=== PATIENT | female | born 1985 | race Caucasian/White ===

== ENCOUNTER 2016-09-18 21:50 | Emergency (ER) | payer OTHER ==
[~2016-09-18] VITALS: Ht 177.8 cm; Wt 102.0 kg
[~2016-09-18 21:50] MED LIST: EFFSR75 PO; ETONMIS VAGRING; SYN75 PO; TRIA3AER NAE
[2016-09-18 21:59] VITALS: Ht 177.8 cm; Wt 102.0 kg
[2016-09-18] MEDS ORDERED: IBUPROFEN 600 MG TAB PO STA (22:18)
[2016-09-18] MEDS ORDERED: OSELTAMIVIR PHOSPHATE 75 MG CAP PO STA (22:18)
--- NOTE | 2016-09-18 22:20 | EMERGENCY ROOM VISIT NOTE ---
History Report prepared by Lizet: Damon Cooley Under the Supervision of: Dr. Quinton Howe M.D. First contact with patient: 22:03 Chief Complaint: FLU LIKE SX Stated Complaint: FEVER,BODY ACHES,JOINT PAIN,SORE THROAT History of Present Illness The patient is a 30 year old female who presents to the Emergency Room with complaints of flu-like symptoms that began 4 hours ago. The patient felt completely fine this morning. She took a nap, and when she woke up she started having a sore throat. She then began to have a fever, body aches, joint pain, post nasal drip, and shallowed breathing. She denies any cough, vomiting, diarrhea, nausea, rash, chest pain, abdominal pain, and headache. She did not take anything for her pain. She did have a flu shot this year. There is no chance that she is . Denies neck pain or stiffness. Source of History: patient, spouse/significant other Onset: 4 hours ago Position: other (global) Symptom Intensity: moderate Quality: ache, other (flu-like symptoms) Timing: constant Associated Symptoms: + SOB (shallowed breathing), + fevers, + sorethroat, No abdominal pain, No chest pain, No cough, No headache, No nausea, No rash, No vomiting Note: She has body aches, joint pain, and rhinorrhea. Review of Systems See HPI for pertinent positives & negatives. A total of 10 systems reviewed and were otherwise negative. Past Medical & Surgical Medical Problems: (1) ADHD (attention deficit hyperactivity disorder) (2) DDD (degenerative disc disease) (3) Rosendo's disease (4) Hypothyroid (5) PCOS (polycystic ovarian syndrome) Old medical records were reviewed. Nurse's notes were reviewed and I agree with. Family History Depression FH: heart disease FHx: cancer Hypertension Kidney disease Social History Smoking Status: Never Smoker Smokeless Tobacco Use: No Alcohol Use: occasionally Drug Use: none Marital Status: Housing Status: lives with significant other Occupation Status: employed Current/Historical Medications Scheduled Amphetamine-Dextroamphetamine 20MG (Adderall Xr 20MG), 20 MG PO DAILY Gptanne-Uitpjyoselubb-Qpulebni (Excedrin Migraine), 1 TAB PO UD Clomiphene Citrate (Clomiphene Citrate), 150 MG PO DAILY Levothyroxine Sodium (Levothyroxine Sodium), 1 TAB PO DAILY Multivit/Min/Iron/Fol Ac/Pren ( Vitamin), 1 TAB PO DAILY Oseltamivir (Tamiflu), 75 MG PO BID Scheduled PRN Ibuprofen Tab (Advil), 400 MG PO UD PRN for Headache or Pain Triamcinolone Acetonide (Nasal (Nasacort Allergy 24Hr), 2 SPRAYS LIZ DAILY PRN for congestion Allergies Coded Allergies: Banana (Verified Allergy, Unknown, ANAPHYLAXIS, 09/18/16) Cantaloupe (Verified Allergy, Unknown, itching of mouth, 09/18/16) Mold (Blue) Cheese (Verified Allergy, Unknown, itching of mouth, 09/18/16) Physical Exam Vital Signs Date Time Temp Pulse Resp B/P Pulse Ox O2 Delivery O2 Flow Rate FiO2 09/18/16 21:59 37.7 112 16 143/82 97 Room Air Physical Exam General: Mildly ill appearing young female, non-toxic, young female. Well developed well nourished in no acute distress, breathing comfortably on room air. Normal speech HEENT: Normal cephalic atraumatic. Pupils are equal round and reactive to light. Extraocular movements are intact. Oropharynx is pink with moist mucous membranes. No swelling of the mouth lips or tongue. Neck: Supple with a midline trachea. No meningeal signs or stiffness, no JVD or bruits. No Stridor. Negative Kernig and Brudzinski signs. Chest: Clear to auscultation bilaterally. No wheezes or rhonchi. No increased work of breathing. Heart: regular rate and rhythm. Abdomen: Soft nontender, nondistended without rebound guarding or rigidity. Extremities: No cyanosis clubbing or edema. No calf tenderness or assymetry Spine/Back. Non tender to palpation. No CVA tenderness Skin: Good turgor without rashes. Neurologic exam: Cranial nerves two through 12 are intact. Motor and sensation are intact and symmetrical throughout. Medical Decision & Procedures Medications Administered Medications (Trade) Dose Ordered Sig/Ike Route Start Time Stop Time Status Last Admin Dose Admin Ibuprofen (Motrin Tab) 600 mg NOW STAT PO 09/18/16 22:18 09/18/16 22:20 DC 09/18/16 22:35 600 MG Oseltamivir Phosphate (Tamiflu Cap) 75 mg NOW STAT PO 09/18/16 22:18 09/18/16 22:20 DC 09/18/16 22:34 75 MG ED Course 2202: Past medical records reviewed. The patient was evaluated in room C9, and a complete history and physical examination were performed. 2217: Ordered Tamiflu Cap 75 mg PO, Motrin Tab 600 mg PO 5: Upon reevaluation, the patient is resting. I discussed the results and treatment plan with her. She verbalized agreement of the treatment plan. The patient was discharged home. Medical Decision Differentials include, but are not limited to; influenza, strep throat, sepsis, and dehydration. This patient comes in as described above. She was placed in room C9. She has influenza-like illness and it started 4 hours ago. She has body aches, sore throat, fever and generalized malaise. She has no meningeal signs and has nothing to suggest toxicity meningitis or sepsis. Rapid strep was negative. Her throat does not appear to be significantly swollen. Given her classic symptoms, I will start on Tamiflu I talked to her at length. At this point, the rapid flu is not very accurate and even if it was negative based on my clinical suspicion I would start her on Tamiflu. She agrees as does her . She should have good supportive care, Rest and drink plenty fluids, use Tylenol and/or ibuprofen and do not exceed the tkig-dnm-hciwiao dosages. Return if: Worsening of symptoms, not tolerating fluids, fever or chills, any new problems or concerns. Follow-up with her doctor in the next couple days for recheck. Impression Primary Impression: Influenza Additional Impression: Pharyngitis Scribe Attestation The scribe's documentation has been prepared under my direction and personally reviewed by me in its entirety. I confirm that the note above accurately reflects all work, treatment, procedures, and medical decision making performed by me. Departure Information Dispostion Home / Self-Care Prescriptions Oseltamivir (Tamiflu) 75 Mg Cap 75 MG PO BID, #10 CAP Prov: Quinton Howe M.D. 09/18/16 Referrals No Doctor, Assigned (PCP) Forms HOME CARE DOCUMENTATION FORM, IMPORTANT VISIT INFORMATION Patient Instructions My [facility] Additional Instructions Rest. Drink plenty of fluids. Use Tamiflu 75 mg twice a day for 5 days. Use ibuprofen 400 mg every 6 hours, take with food. May also use Tylenol/acetaminophen -a maximum of 650 mg every 6 hours. Do not take with any other medications that contain Tylenol/acetaminophen. Return if: Worsening of symptoms, shortness of breath, not tolerating fluids, any new problems or concerns. Follow-up with your doctor in 2 days if not better or return to ER any point if symptoms worsen Problem Qualifiers
[2016-09-18] MEDS ORDERED: OSEL75CA12 PO (22:22)
[2016-09-18] MEDS ORDERED: LEVO88TA3 PO (22:31)
[2016-09-18] MEDS ORDERED: AMPH20CA3 PO (22:31)
[2016-09-18] MEDS ORDERED: ASPI-390 PO (22:31)
[2016-09-18] MEDS ORDERED: CLOM50TA6 PO (22:31)
[2016-09-18] MEDS ORDERED: IBUP-103 PO (22:31)
[2016-09-18] MEDS ORDERED: PRENTAB26 PO (22:31)
[2016-09-18] MEDS ORDERED: TRIA1SPR4 NAE (22:31)
[2016-09-18 22:38] VITALS: BP 157/98; PULSE 104; TEMP 38.3; O2SAT 100
== END 2016-09-18 22:45 | disposition home or self-care (01) ==
LOC: C.EDB 21:51 → C.EDC 22:45
DX: J02.9 Acute pharyngitis, unspecified (principal); J11.1 Influenza due to unidentified influenza virus with other respiratory manifestations; E03.9 Hypothyroidism, unspecified; F90.9 Attention-deficit hyperactivity disorder, unspecified type; E06.3 Autoimmune thyroiditis; E28.2 Polycystic ovarian syndrome; Z79.82 Long term (current) use of aspirin; Z79.899 Other long term (current) drug therapy; Z91.018 Allergy to other foods; Z91.09 Other allergy status, other than to drugs and biological substances; Z82.49 Family history of ischemic heart disease and other diseases of the circulatory system; Z80.9 Family history of malignant neoplasm, unspecified; Z84.1 Family history of disorders of kidney and ureter; Z81.8 Family history of other mental and behavioral disorders

== ENCOUNTER 2016-10-29 12:28 | Emergency (ER) | payer OTHER ==
[~2016-10-29] VITALS: Ht 176.5 cm; Wt 105.5 kg
[~2016-10-29 12:28] MED LIST changes: +AMPH20CA3 PO; +ASPI-390 PO; +CLOM50TA6 PO; -EFFSR75 PO; -ETONMIS VAGRING; +IBUP-103 PO; +LEVO88TA3 PO; +OSEL75CA12 PO; +PRENTAB26 PO; -SYN75 PO; +TRIA1SPR4 NAE; -TRIA3AER NAE
[2016-10-29 12:39] VITALS: Ht 176.5 cm; Wt 105.5 kg
[2016-10-29 13:05] LABS: URINE APPEARANCE CLEAR (CLEAR); URINE BILIRUBIN NEG (NEG); URINE COLOR YELLOW; URINE EPITHELIAL CELL AUTO 0-5 /lpf (0-5); URINE NITRITE NEG (NEG); URINE PH 6.5 (4.5-7.5); URINE SPECIFIC GRAVITY 1.003 (1.000-1.030); UROBILINOGEN NEG (NEG); ZZUR CULT IF INDIC CLEAN CATCH NO
[2016-10-29] MEDS ORDERED: GLC/500 PO (13:10)
[2016-10-29] MEDS ORDERED: DOCO1CAP6 PO (13:10)
[2016-10-29 13:13] LABS: MANUAL MICROSCOPIC REQUIRED? NO; REVIEW REQ? NO
--- NOTE | 2016-10-29 13:15 | EMERGENCY ROOM VISIT NOTE ---
History Report prepared by Lizet: Alla Pop Under the Supervision of: Dr. Finn Dhillon M.D. First contact with patient: 13:05 Chief Complaint: ED VAG BLEEDING Stated Complaint: 7 WKS , BLEEDING History of Present Illness The patient is a 30 year old female who presents to the Emergency Room with complaints of resolved vaginal bleeding this morning. She had intercourse this morning and found she had a concerning amount of bleeding. The blood was not enough to use a pad and resolved. She has no pain or cramping. She denies feeling lightheaded or dizzy. The patient is 7 weeks . This is her first . She was on Clomid prior to her . She recently had a blood test and affirms that her blood type is O+. Source of History: patient Onset: this morning Position: other (vaginal) Quality: other (bleeding) Timing: resolved Associated Symptoms: No abdominal pain Note: Pt denies feeling lightheaded or dizzy. Review of Systems All systems have been listed, reviewed, and are negative other than those previously mentioned. Please see Additional Medical History Sheet. Past Medical & Surgical Medical Problems: (1) ADHD (attention deficit hyperactivity disorder) (2) DDD (degenerative disc disease) (3) Rosendo's disease (4) Hypothyroid (5) PCOS (polycystic ovarian syndrome) Family History Depression FH: heart disease FHx: cancer Hypertension Kidney disease Social History Smoking Status: Former Smoker Alcohol Use: none Drug Use: none Marital Status: Housing Status: lives with significant other Occupation Status: employed Current/Historical Medications Scheduled Docosahexaenoic Acid ( Dha), 2 TABS PO HS Levothyroxine Sodium (Levothyroxine Sodium), 1 TAB PO DAILY Metformin Hcl (Glucophage), 500 MG PO BID Multivit/Min/Iron/Fol Ac/Pren ( Vitamin), 1 TAB PO DAILY Allergies Coded Allergies: Banana (Verified Allergy, Unknown, ANAPHYLAXIS, 10/29/16) Cantaloupe (Verified Allergy, Unknown, itching of mouth, 10/29/16) Mold (Blue) Cheese (Verified Allergy, Unknown, itching of mouth, 10/29/16) Physical Exam Vital Signs Date Time Temp Pulse Resp B/P Pulse Ox O2 Delivery O2 Flow Rate FiO2 10/29/16 17:10 36.8 91 18 121/85 98 10/29/16 17:00 91 18 121/85 98 Room Air 10/29/16 15:04 93 18 124/88 98 Room Air 10/29/16 12:39 36.8 92 17 137/88 97 Room Air Physical Exam GENERAL: Patient awake, alert, oriented x 3. Patient follows commands. Patient does not appear toxic. Patient is adequately hydrated and well- nourished. SKIN: No erythema, pallor, cyanosis or rash HEENT: Normal head, pupils equal, reactive to light and accommodation. LUNGS: Clear to auscultation. No wheezes, no rales, no rhonchi. HEART: No murmurs. No gallops. No rubs ABDOMEN: No masses, no rebound, no hepatomegaly or splenomegaly. PELVIC: No signs of trauma on labia. No blood in vault. Small amount of blood in cervix. No active bleeding. Os is closed. Uterus is slightly enlarged. Adnexa nontender. EXTREMITIES: No signs of trauma or infection. NEUROLOGIC: Cranial nerves II-XII within normal limits. No gross motor sensory function deficits. Medical Decision & Procedures ER Provider Diagnostic Interpretation: Radiology results as stated below per my review and radiologist interpretation: FIRST TRIMESTER ULTRASOUND (transabdominal and endovaginal scanning) CLINICAL HISTORY: Vaginal bleeding COMPARISON STUDY: No previous studies for comparison. FINDINGS: The uterus appears sonographically normal. The endometrial stripe measures 12 mm. No intrauterine gestational sac is visualized. No adnexal masses are identified. There is no free fluid. IMPRESSION: Normal pelvic ultrasound. No evidence of intrauterine gestational sac. In the setting of a positive test, diagnostic considerations include early normal intrauterine , ectopic , or spontaneous . Correlation with serial quantitative beta hCGs is recommended. Electronically signed by: Aubrey Gates M.D. 10/29/2016 3:26 PM Dictated Date/Time: 10/29/2016 3:23 PM Laboratory Results 10/29/16 13:29 Test 10/29/16 12:45 10/29/16 13:29 Urine Color YELLOW Urine Appearance CLEAR (CLEAR) Urine pH 6.5 (4.5-7.5) Urine Specific [place] 1.003 (1.000-1.030) Urine Protein NEG (NEG) Urine Glucose (UA) NEG (NEG) Urine Ketones NEG (NEG) Urine Occult Blood NEG (NEG) Urine Nitrite NEG (NEG) Urine Bilirubin NEG (NEG) Urine Urobilinogen NEG (NEG) Urine Leukocyte Esterase NEG (NEG) Urine WBC (Auto) 0 /hpf (0-5) Urine RBC (Auto) 0-4 /hpf (0-4) Urine Hyaline Casts (Auto) 1-5 /lpf (0-5) Urine Epithelial Cells (Auto) 0-5 /lpf (0-5) Urine Bacteria (Auto) NEG (NEG) Red Blood Count 4.99 M/uL (4.2-5.4) Mean Corpuscular Volume 88.0 fL (80-100) Mean Corpuscular Hemoglobin 29.3 pg (25-34) Mean Corpuscular Hemoglobin Concent 33.3 g/dl (32-36) RDW Standard Deviation 42.3 fL (36.4-46.3) RDW Coefficient of Variation 13.1 % (11.5-14.5) Mean Platelet Volume 10.1 fL (7.4-10.4) Human Chorionic Gonadotropin, Quant 696 mIU/mL Laboratory results as stated above per my review. ED Course 1306: Past medical records reviewed. The patient was evaluated in room A2. A complete history and physical examination was performed. 1612: Upon reevaluation, the patient appeared to have improvement of her symptoms. I discussed today's findings with her. She verbalized agreement of the treatment plan. She was discharged home. Medical Decision Differential diagnoses: first trimester , threatened AB, vaginal laceration, anemia. The patient has minimal bleeding on exam. Multiple labs were evaluated. Quantitative beta-hCG is in the high 600s which is not consistent with the patient's menstrual history. Ultrasound does not reveal an intrauterine . Most likely the patient has lost the . We will repeat her quantitative hCG in 2 days. The patient is to call her pharmaceutical plant operator on Monday to have that performed. In the meantime she was encouraged to return here if she is having excessive bleeding or passes any tissue. Impression Primary Impression: Threatened Scribe Attestation The scribe's documentation has been prepared under my direction and personally reviewed by me in its entirety. I confirm that the note above accurately reflects all work, treatment, procedures, and medical decision making performed by me. Departure Information Dispostion Home / Self-Care Referrals Missael Skaggs M.D. (PCP) Forms HOME CARE DOCUMENTATION FORM, IMPORTANT VISIT INFORMATION, WORK / SCHOOL INSTRUCTIONS Patient Instructions ED Miscarriage Poss, My [facility] Additional Instructions REST Drink extra fluids. Follow-up with your pharmaceutical plant operator Monday. Return here sooner if you have excessive bleeding or pass any tissue.
[2016-10-29 13:40] LABS: HEMATOCRIT 43.9 % (37-47); MEAN CORPUSCULAR HEMOGLOBIN 29.3 pg (25-34); MEAN CORPUSCULAR HGB CONC 33.3 g/dl (32-36); MEAN PLATELET VOLUME 10.1 fL (7.4-10.4); PLATELET COUNT 381 K/uL (130-400); RED BLOOD COUNT 4.99 M/uL (4.2-5.4); WHITE BLOOD COUNT 10.83 K/uL (4.8-10.8)
--- NOTE | 2016-10-29 15:28 | DIAGNOSTIC IMAGING REPORT ---
FIRST TRIMESTER ULTRASOUND (transabdominal and endovaginal scanning) CLINICAL HISTORY: Vaginal bleeding COMPARISON STUDY: No previous studies for comparison. FINDINGS: The uterus appears sonographically normal. The endometrial stripe measures 12 mm. No intrauterine gestational sac is visualized. No adnexal masses are identified. There is no free fluid. IMPRESSION: Normal pelvic ultrasound. No evidence of intrauterine gestational sac. In the setting of a positive test, diagnostic considerations include early normal intrauterine , ectopic , or spontaneous . Correlation with serial quantitative beta hCGs is recommended. Electronically signed by: Aubrey Gates M.D. 10/29/2016 3:26 PM Dictated Date/Time: 10/29/2016 3:23 PM
[2016-10-29 17:10] VITALS: BP 121/85; PULSE 91; TEMP 36.8; O2SAT 98
== END 2016-10-29 17:10 | disposition home or self-care (01) ==
LOC: C.EDB 12:28 → C.EDA 17:10
DX: O20.0 Threatened abortion (principal); E06.3 Autoimmune thyroiditis; F90.9 Attention-deficit hyperactivity disorder, unspecified type; E28.2 Polycystic ovarian syndrome; Z87.891 Personal history of nicotine dependence; Z79.4 Long term (current) use of insulin; Z79.899 Other long term (current) drug therapy; Z91.018 Allergy to other foods; Z82.49 Family history of ischemic heart disease and other diseases of the circulatory system; Z80.9 Family history of malignant neoplasm, unspecified; Z81.8 Family history of other mental and behavioral disorders; Z84.1 Family history of disorders of kidney and ureter

== ENCOUNTER 2016-10-30 13:39 | Emergency (ER) | payer OTHER ==
[~2016-10-30] VITALS: Ht 175.3 cm; Wt 101.2 kg
[~2016-10-30 13:39] MED LIST changes: +DOCO1CAP6 PO; +GLC/500 PO
[2016-10-30 13:42] VITALS: TEMP 36.6; Ht 175.3 cm; Wt 101.2 kg
--- NOTE | 2016-10-30 14:38 | EMERGENCY ROOM VISIT NOTE ---
History Report prepared by Lizet: Effie Miller Under the Supervision of: Dr. Finn Dhillon M.D. First contact with patient: 14:22 Chief Complaint: VAGINAL BLEEDING Stated Complaint: BLEEDING,PASSING TISSUE,7WKS PREG History of Present Illness The patient is a 30 year old female who presents to the Emergency Room with complaints of an episode of vaginal bleeding starting a few a hours ago. The patient returns after a visit here yesterday for vaginal bleeding. She was sent home as a threatened miscarriage and now returns with more bleeding and passage of tissue. She is currently taking in Clomid. She has a 1, para 0, and 0. She complains of some cramping. Source of History: patient Onset: few hours ago Position: other (vaginal) Quality: other (global) Timing: other (epsiode) Note: The patient complains of cramping. Review of Systems All systems have been listed, reviewed, and are negative other than those previously mentioned. Please see Additional Medical History Sheet. Past Medical & Surgical Medical Problems: (1) ADHD (attention deficit hyperactivity disorder) (2) DDD (degenerative disc disease) (3) Rosendo's disease (4) Hypothyroid (5) PCOS (polycystic ovarian syndrome) Family History Depression FH: heart disease FHx: cancer Hypertension Kidney disease Social History Smoking Status: Never Smoker Alcohol Use: none Drug Use: none Marital Status: Housing Status: lives with significant other Occupation Status: employed Current/Historical Medications Scheduled Docosahexaenoic Acid ( Dha), 2 TABS PO HS Levothyroxine Sodium (Levothyroxine Sodium), 88 MCG PO DAILY Metformin Hcl (Glucophage), 500 MG PO BID Multivit/Min/Iron/Fol Ac/Pren ( Vitamin), 1 TAB PO DAILY Allergies Coded Allergies: Banana (Verified Allergy, Unknown, ANAPHYLAXIS, 10/30/16) Cantaloupe (Verified Allergy, Unknown, itching of mouth, 10/30/16) Mold (Blue) Cheese (Verified Allergy, Unknown, itching of mouth, 10/30/16) Physical Exam Vital Signs Date Time Temp Pulse Resp B/P Pulse Ox O2 Delivery O2 Flow Rate FiO2 10/30/16 16:59 88 16 133/60 98 10/30/16 16:21 89 16 130/91 98 Room Air 10/30/16 13:42 36.6 93 18 142/96 96 Room Air Physical Exam GENERAL: Patient awake, alert, oriented x 3. Patient follows commands. Patient does not appear toxic. Patient is adequately hydrated and well- nourished. Patient appears despondent. SKIN: No erythema, cyanosis or rash. Patient appears pale. HEENT: Normal head, pupils equal, reactive to light and accommodation. Ears normal. Oral cavity and posterior pharynx appear normal. Neck: Without adenopathy, no neck vein distention. LUNGS: Clear to auscultation. No wheezes, no rales, no rhonchi. HEART: No murmurs. No gallops. No rubs ABDOMEN: No masses, no rebound, no hepatomegaly or splenomegaly. PELVIC: Reveals about 5 to 10 cc of blood in vagina. Blood continues to ooze through os. Os continues to ooze blood. EXTREMITIES: No signs of trauma. No pedal or pretibial edema. No calf or thigh tenderness. NEUROLOGIC: Cranial nerves II-XII within normal limits. No gross motor sensory function deficits. Medical Decision & Procedures ER Provider Diagnostic Interpretation: <14 WKS SINGLE ULTRASOUND CLINICAL HISTORY: Vaginal bleeding. Threatened . COMPARISON STUDY: Pelvic ultrasound 10/29/2016. FINDINGS: The uterus and ovaries are within normal limits. No intrauterine gestational sac, yolk sac, or pole identified. No pelvic free fluid. No adnexal masses. The endometrial stripe measures 6 mm in thickness. IMPRESSION: Normal pelvic ultrasound. No evidence for an intrauterine gestational sac. In the setting of a positive test, diagnostic considerations include an early normal intrauterine , a nonvisualized ectopic , or recent spontaneous . Correlation with serial quantitative beta-hCG is recommended. Electronically signed by: Celso Vargas M.D. 10/30/2016 4:34 PM Dictated Date/Time: 10/30/2016 4:29 PM Laboratory Results 10/30/16 14:50 Test 10/30/16 14:50 Red Blood Count 5.05 M/uL (4.2-5.4) Mean Corpuscular Volume 87.9 fL (80-100) Mean Corpuscular Hemoglobin 30.7 pg (25-34) Mean Corpuscular Hemoglobin Concent 34.9 g/dl (32-36) RDW Standard Deviation 42.7 fL (36.4-46.3) RDW Coefficient of Variation 13.2 % (11.5-14.5) Mean Platelet Volume 9.9 fL (7.4-10.4) Human Chorionic Gonadotropin, Quant 244 mIU/mL Laboratory results as stated above per my review. ED Course 1423: Past medical records reviewed. The patient was evaluated in room B6. A complete history and physical examination was performed. Medical Decision Differential Diagnoses include threatened , inevitable , incomplete . The patient returns today with increased vaginal bleeding. She also believes she passed some tissue. Examination of that specimen: Tissue versus clot undetermined. Also remains closed. She continues to ooze. Hemoglobin and hematocrit are stable. Ultrasound as listed above. Quantitative beta-hCG is now less than it was yesterday. The patient is a threatened AB but more likely inevitable. I discussed briefly over the phone with Dr. Torres. The patient will be followed in their office tomorrow. Consults Time Called: 1632 Consulting Physician: Melissa Returned Call: Will follow the patient in the office tomorrow. Impression Primary Impression: Inevitable Scribe Attestation The scribe's documentation has been prepared under my direction and personally reviewed by me in its entirety. I confirm that the note above accurately reflects all work, treatment, procedures, and medical decision making performed by me. Departure Information Referrals Ashli Royal DO (PCP) Patient Instructions My [facility] Additional Instructions Drink extra fluids. Rest Call tomorrow morning for an appointment with the incident response analyst. Return here sooner if you have excessive bleeding.
[2016-10-30 15:01] LABS: HEMATOCRIT 44.4 % (37-47); MEAN CELL VOLUME 87.9 fL (80-100); MEAN CORPUSCULAR HEMOGLOBIN 30.7 pg (25-34); MEAN CORPUSCULAR HGB CONC 34.9 g/dl (32-36); MEAN PLATELET VOLUME 9.9 fL (7.4-10.4); PLATELET COUNT 382 K/uL (130-400); RED BLOOD COUNT 5.05 M/uL (4.2-5.4)
--- NOTE | 2016-10-30 16:36 | DIAGNOSTIC IMAGING REPORT ---
<14 WKS SINGLE ULTRASOUND CLINICAL HISTORY: Vaginal bleeding. Threatened . COMPARISON STUDY: Pelvic ultrasound 10/29/2016. FINDINGS: The uterus and ovaries are within normal limits. No intrauterine gestational sac, yolk sac, or pole identified. No pelvic free fluid. No adnexal masses. The endometrial stripe measures 6 mm in thickness. IMPRESSION: Normal pelvic ultrasound. No evidence for an intrauterine gestational sac. In the setting of a positive test, diagnostic considerations include an early normal intrauterine , a nonvisualized ectopic , or recent spontaneous . Correlation with serial quantitative beta-hCG is recommended. Electronically signed by: Celso Vargas M.D. 10/30/2016 4:34 PM Dictated Date/Time: 10/30/2016 4:29 PM
[2016-10-30 16:59] VITALS: BP 133/60; PULSE 88; O2SAT 98
== END 2016-10-30 17:00 | disposition home or self-care (01) ==
LOC: C.EDB 13:41
DX: O03.9 Complete or unspecified spontaneous abortion without complication (principal); E03.9 Hypothyroidism, unspecified; E28.2 Polycystic ovarian syndrome; Z79.899 Other long term (current) drug therapy; Z3A.01 Less than 8 weeks gestation of pregnancy

== ENCOUNTER 2017-09-06 19:47 | Emergency (ER) | payer BC, OTHER ==
[~2017-09-06] VITALS: Ht 175.3 cm; Wt 99.9 kg
[~2017-09-06 19:47] MED LIST changes: -AMPH20CA3 PO; -ASPI-390 PO; -CLOM50TA6 PO; -IBUP-103 PO; -OSEL75CA12 PO; -TRIA1SPR4 NAE
[2017-09-06 20:02] VITALS: TEMP 36.8; Ht 175.3 cm; Wt 99.9 kg
[2017-09-06 21:24] VITALS: O2SAT 96
[2017-09-06 21:47] LABS: BASO % 0.3 %; BASO ABS # 0.04 K/uL (0-0.2); EOS % 2.8 %; EOS ABS # 0.32 K/uL (0-0.5); HEMATOCRIT 39.6 % (37-47); HEMOGLOBIN 13.9 g/dL (12.0-16.0); IG# 0.04 K/uL (0.00-0.02); LYMPH % 24.9 %; LYMPH ABS # 2.87 K/uL (1.2-3.4); MEAN CELL VOLUME 85.9 fL (80-100); MEAN CORPUSCULAR HEMOGLOBIN 30.2 pg (25-34); MEAN CORPUSCULAR HGB CONC 35.1 g/dl (32-36); MONO % 6.7 %; MONO ABS # 0.77 K/uL (0.11-0.59); NEUT ABS # 7.48 K/uL (1.4-6.5); NUCLEATED RED BLOOD CELL ABS 0.02 K/uL (0-0); PLATELET COUNT 385 K/uL (130-400); RED CELL DISTRIBUTION WIDTH CV 12.9 % (11.5-14.5); RED CELL DISTRIBUTION WIDTH SD 40.4 fL (36.4-46.3); WHITE BLOOD COUNT 11.52 K/uL (4.8-10.8)
[2017-09-06 22:04] LABS: ALBUMIN 3.9 gm/dl (3.4-5.0); CALCIUM 8.9 mg/dl (8.5-10.1); CREATININE 0.74 mg/dl (0.60-1.20); POTASSIUM 3.9 mmol/L (3.5-5.1)
[2017-09-06 22:08] LABS: TOTAL PROTEIN 7.7 gm/dl (6.4-8.2)
--- NOTE | 2017-09-06 22:10 | EMERGENCY ROOM VISIT NOTE ---
ED Visit Note First contact with patient: 20:49 CHIEF COMPLAINT: Vaginal bleeding HISTORY OF PRESENTING ILLNESS: This is a 31-year-old female who presents to the emergency department with concern for vaginal bleeding that started this evening. Patient states that she is approximately 10 weeks , with a history of a previous miscarriage about a year ago. She states that she felt a small gush of discharge this evening, when she went to the bathroom she noticed a small amount of brown/pink discharge on her underwear and when she wiped. She denies any bright red blood, heavy bleeding, or clots passing she denies any abdominal pain or cramping, back pain from the vagina., Fevers or chills, nausea or vomiting, urinary symptoms, chest pain or shortness of breath , dizziness or syncope. She states that she has already had two formal ultrasounds for this which have confirmed a single IUP. REVIEW OF SYSTEMS: A complete 10 point review of systems was reviewed with the patient with pertinent positives and negatives as per history of present illness. All else were negative. PAST MEDICAL HISTORY: Reviewed in chart. SOCIAL HISTORY: Lives at home with her . Denies tobacco, alcohol, recreational drug use. ALLERGIES: Reviewed in chart. PHYSICAL EXAM: CONSTITUTIONAL: Pleasant and cooperative. No acute distress. Well-hydrated, well appearing and well nourished. HEENT: Normocephalic, atraumatic. Pupils equal, round and reactive to light, EOMI. TMs normal. Pharynx normal. Moist mucous membranes. NECK: Supple, full active range of motion without discomfort. RESPIRATORY: Clear to auscultation bilaterally with no wheezing, crackles, rhonchi or stridor. Equal expansion bilaterally. CARDIOVASCULAR: Regular rate and rhythm with no murmurs, rubs or gallops. Normal peripheral perfusion. No edema. GASTROINTESTINAL: Soft, nontender, nondistended. No palpable masses or HSM. Bowel sounds present in all quadrants. PELVIC EXAM: VULVA: No ulcers, vesicles or atrophy. VAGINA: Small amount of brownish discharge mixed with clear mucus, no foul odor, no bright red blood, no clots. CERVIX: Closed, pink, nontender, no cervical motion tenderness, no discharge. UTERUS: Normal size, nontender. ADNEXA: No masses or tenderness. A nurse was present as a garbage collector driver during the examination. MUSCULOSKELETAL: Full range of motion of all joints without discomfort. INTEGUMENTARY: No rash or other significant dermatologic conditions noted. NEUROLOGIC: Alert and oriented X 4 with normal affect. Normal strength and sensation all 4 extremities. No focal neurologic deficits noted. Normal speech. Normal gait observed. ED COURSE AND MEDICAL DECISION MAKING: CC: Patient presenting with complaint of vaginal bleeding in early DIFFERENTIAL DIAGNOSIS: Includes, but not limited to threatened miscarriage, abnormal vaginal bleeding, subchorionic hemorrhage, ectopic , among others. INTERPRETATION OF LABS: Mild leukocytosis, no anemia, no significant electrolyte abnormalities, normal renal function, normal liver enzymes. Beta hCG quant consistent with gestation. UA negative. She is O+ blood type. IMAGING: I performed a bedside transabdominal OB ultrasound to evaluate the . The fetus appears consistent with dates, active movement, heart activity confirmed with heart rate average 160 bpm. MEDICATION RECONCILIATION: I attest that I have personally reviewed the patient 's current medication list. INITIAL VITAL SIGNS REVIEW: I reviewed the patient's initial vital signs and interpret them as follows: T: Afebrile; BP: Normotensive; HR: Within normal limit; RR: Within normal limits; Pulse Ox: Within normal limits on room air. Blood pressure screening: The patient was found to have normal blood pressure on screening and does not require follow-up for repeat blood pressure check. SUMMARY: Patient was evaluated at bedside, history and physical exam performed. Patient is alert and oriented, no acute distress, resting calmly in the stretcher. Patient does not have any abdominal tenderness to palpation he does not appear anemic or dehydrated. Bedside ultrasound was performed, confirming active movement and normal cardiac activity. Orders were placed at bedside for labs, UA, beta hCG quant level to evaluate for possible threatened miscarriage. Patient discussed with Dr. Farnsworth, who agrees with my assessment and plan. Labs and imaging reviewed as above, not anemic, beta quant consistent with gestation. Pelvic exam revealed no active bleeding, cervical ossea closed. Patient reassessed multiple times throughout ED stay, she remains well appearing and denies any recurrence of vaginal bleeding or development of abdominal or back pain. Patient was updated on all results and plan for discharge, she is encouraged to follow closely with her OB provider in the next few days to have her blood rechecked. Patient was also given strict return precautions should her symptoms worsen, she verbalized understanding. Patient was discharged home in stable condition and ambulatory. Problem List Medical Problems: (1) ADHD (attention deficit hyperactivity disorder) Status: Chronic (2) DDD (degenerative disc disease) Status: Chronic (3) Rosendo's disease Status: Chronic (4) Hypothyroid Status: Chronic (5) PCOS (polycystic ovarian syndrome) Status: Chronic Current/Historical Medications Scheduled Docosahexaenoic Acid ( Dha), 2 TABS PO HS Levothyroxine Sodium (Levothyroxine Sodium), 88 MCG PO DAILY Metformin Hcl (Glucophage), 500 MG PO BID Multivit/Min/Iron/Fol Ac/Pren ( Vitamin), 1 TAB PO DAILY Allergies Coded Allergies: Banana (Verified Allergy, Unknown, ANAPHYLAXIS, 10/30/16) Cantaloupe (Verified Allergy, Unknown, itching of mouth, 10/30/16) Mold (Blue) Cheese (Verified Allergy, Unknown, itching of mouth, 10/30/16) Vital Signs Date Time Temp Pulse Resp B/P (MAP) Pulse Ox O2 Delivery O2 Flow Rate FiO2 09/06/17 22:59 87 126/72 98 09/06/17 21:48 88 09/06/17 21:25 87 20 142/86 97 Room Air 09/06/17 21:24 96 Room Air 09/06/17 20:02 36.8 90 18 128/86 100 Room Air Laboratory Results 09/06/17 21:18 Red Blood Count 4.61, Mean Corpuscular Volume 85.9, Mean Corpuscular Hemoglobin 30.2, Mean Corpuscular Hemoglobin Concent 35.1, Mean Platelet Volume 10.0, Neutrophils (%) (Auto) 65.0, Lymphocytes (%) (Auto) 24.9, Monocytes (%) (Auto) 6.7, Eosinophils (%) (Auto) 2.8, Basophils (%) (Auto) 0.3, Neutrophils # (Auto) 7.48, Lymphocytes # (Auto) 2.87, Monocytes # (Auto) 0.77, Eosinophils # (Auto) 0.32, Basophils # (Auto) 0.04 09/06/17 21:18 Test 09/06/17 20:30 09/06/17 21:18 Urine Color DK YELLOW Urine Appearance CLEAR (CLEAR) Urine pH 5.5 (4.5-7.5) Urine Specific [place] 1.034 (1.000-1.030) Urine Protein NEG (NEG) Urine Glucose (UA) NEG (NEG) Urine Ketones TRACE (NEG) Urine Occult Blood NEG (NEG) Urine Nitrite NEG (NEG) Urine Bilirubin NEG (NEG) Urine Urobilinogen NEG (NEG) Urine Leukocyte Esterase NEG (NEG) White Blood Count 11.52 K/uL (4.8-10.8) Red Blood Count 4.61 M/uL (4.2-5.4) Hemoglobin 13.9 g/dL (12.0-16.0) Hematocrit 39.6 % (37-47) Mean Corpuscular Volume 85.9 fL (80-100) Mean Corpuscular Hemoglobin 30.2 pg (25-34) Mean Corpuscular Hemoglobin Concent 35.1 g/dl (32-36) Platelet Count 385 K/uL (130-400) Mean Platelet Volume 10.0 fL (7.4-10.4) Neutrophils (%) (Auto) 65.0 % Lymphocytes (%) (Auto) 24.9 % Monocytes (%) (Auto) 6.7 % Eosinophils (%) (Auto) 2.8 % Basophils (%) (Auto) 0.3 % Neutrophils # (Auto) 7.48 K/uL (1.4-6.5) Lymphocytes # (Auto) 2.87 K/uL (1.2-3.4) Monocytes # (Auto) 0.77 K/uL (0.11-0.59) Eosinophils # (Auto) 0.32 K/uL (0-0.5) Basophils # (Auto) 0.04 K/uL (0-0.2) RDW Standard Deviation 40.4 fL (36.4-46.3) RDW Coefficient of Variation 12.9 % (11.5-14.5) Immature Granulocyte % (Auto) 0.3 % Immature Granulocyte # (Auto) 0.04 K/uL (0.00-0.02) Nucleated RBC Absolute Count (auto) 0.02 K/uL (0-0) Nucleated Red Blood Cells % 0.1 % Anion Gap 6.0 mmol/L (3-11) Est Creatinine Clear Calc Drug Dose 138.6 ml/min Estimated GFR () 125.1 Estimated GFR (Non- 108.0 BUN/Creatinine Ratio 12.8 (10-20) Calcium Level 8.9 mg/dl (8.5-10.1) Total Bilirubin 0.4 mg/dl (0.2-1) Aspartate Amino Transf (AST/SGOT) 11 U/L (15-37) Alanine Aminotransferase (ALT/SGPT) 23 U/L (12-78) Alkaline Phosphatase 55 U/L (45-117) Total Protein 7.7 gm/dl (6.4-8.2) Albumin 3.9 gm/dl (3.4-5.0) Globulin 3.8 gm/dl (2.5-4.0) Albumin/Globulin Ratio 1.0 (0.9-2) Human Chorionic Gonadotropin, Quant 080815 mIU/mL Departure Information Impression Primary Impression: Threatened miscarriage in early Dispostion Home / Self-Care Condition GOOD Referrals Canan. Rock MD (PCP) Patient Instructions ED Miscarriage Poss, [facility] Additional Instructions You should follow-up with OB in 48 hours to have your beta hCG quant levels rechecked. Take this paper with you to your appointment. Your beta hCG quant level today is 108,167. Please call tomorrow morning after 8:30 AM to have an appointment scheduled for follow-up. Anytime there is vaginal bleeding in early , there is concern for a possible threatened miscarriage. If you do progress toward a miscarriage, you can expect to have some heavy bleeding/blood clots and abdominal cramping similar to period cramping. You may take Tylenol as needed for pain and use a heating pad to your abdomen as needed for cramping. Please return to the ER for any worsening symptoms, including severe pain, heavy vaginal bleeding (soaking through more than 1 pad per hour), dizziness or passing out, fevers/chills/feeling ill, or any other concerns.
[2017-09-06 22:59] VITALS: BP 126/72; PULSE 87; O2SAT 98
== END 2017-09-06 23:00 | disposition home or self-care (01) ==
LOC: C.EDB 19:48 → C.EDC 23:00
DX: O20.0 Threatened abortion (principal); F90.9 Attention-deficit hyperactivity disorder, unspecified type; E06.3 Autoimmune thyroiditis; E03.9 Hypothyroidism, unspecified; E28.2 Polycystic ovarian syndrome; Z91.018 Allergy to other foods

== ENCOUNTER 2020-04-10 08:05 | Observation (INO) ==
--- NOTE | 2020-03-25 14:55 | PAT Medication Instructions ---
Medication Instructions Date of Service March 25, 2020 Home Medications escitalopram oxalate [Lexapro] 30 mg PO HS epinephrine 0.3 mg/0.3 mL injection, auto-injector 0.3 mg IM .COMPLEX PRN ibuprofen 200 mg tablet 200 - 600 mg PO Q6H PRN pseudoephedrine HCl 120 mg tablet,extended release 120 mg PO Q12H PRN Vitamin D3 4,000 unit PO DAILY Medical Marijuana Card 1 dose UD PRN dextroamphetamine-amphetamine [Adderall XR] 20 mg PO QAM dextroamphetamine-amphetamine [Adderall] 15 mg PO UD PRN levothyroxine [Synthroid] 137 mcg PO QAM sulfasalazine 500 mg PO BID vitamin B complex 1 tab PO DAILY sulindac 150 mg PO BID Continue as directed epinephrine 0.3 mg/0.3 mL injection, auto-injector 0.3 mg IM .COMPLEX PRN ASK your surgeon for instructions sulindac 150 mg PO BID ibuprofen 200 mg tablet 200 - 600 mg PO Q6H PRN ASK your prescriber and surgeon sulfasalazine 500 mg PO BID DO NOT take the morning of surgery vitamin B complex 1 tab PO DAILY dextroamphetamine-amphetamine [Adderall XR] 20 mg PO QAM Medical Marijuana Card 1 dose UD PRN Vitamin D3 4,000 unit PO DAILY pseudoephedrine HCl 120 mg tablet,extended release 120 mg PO Q12H PRN Take morning of surgery With a small sip of water, OTHERWISE NOTHING TO EAT OR DRINK AFTER MIDNIGHT: levothyroxine [Synthroid] 137 mcg PO QAM Take evening before surgery escitalopram oxalate [Lexapro] 30 mg PO HS pseudoephedrine HCl 120 mg tablet,extended release 120 mg PO Q12H PRN (if needed) Medical Marijuana Card 1 dose UD PRN (if needed) dextroamphetamine-amphetamine [Adderall] 15 mg PO UD PRN (if needed) Other Notes If you have any questions please call us at [phone] or [phone] or [phone] or [phone]
--- NOTE | 2020-03-27 11:24 | Anesthesiology Consultation ---
Date of Service March 27, 2020 Assessment & Plan (1) Encounter for pre-operative examination: - Per assessment on 03/27: Travel screen negative. No known COVID-19 positive contacts or current COVID-19 related symptoms ( had COVID testing 01/2020 for cold symptoms which came back negative). Surgeon arranging preop COVID testing. Awaiting results. - S/P Robotic lap excision urachal remnant: 02/25/20: Grade view 1, MAC#3, ETT 7.5 at [facility] - Check test AM DOS Chart Review Chart Review: Acceptable Risk for Surgery and Patient seen in Pre Admission Testing Teaching & Discussion Pre-Anesthesia Teaching/Discussion Notes: Instructed NPO after midnight before surgery,except medications with 15 cc of water. Medication instructions provided according to the PAT guidelines. History Surgery Operation Date: 04/10/20 10:05 Proposed Procedures p L4-L5 Microdiscectomy, Possible Coflex Implantation - Richy Ortiz, Height/Weight Height: 5 ft 9.5 in Weight: 114.4 kg Allergies Allergy/AdvReac Type Severity Reaction Status Date / Time banana Allergy Intermediate Mouth Verified 03/26/20 13:35 itching nickel Allergy Mild Contact Verified 03/26/20 13:35 dermatitis BLUE CHEESE Allergy Intermediate Mouth Uncoded 03/26/20 13:35 itching Cantaloupe Allergy Intermediate Mouth Uncoded 03/26/20 13:35 itching Medications Home Medications Medication Instructions Recorded Confirmed Last Taken escitalopram oxalate [Lexapro] 30 mg PO HS 10/30/18 03/23/20 02/24/20 22:00 epinephrine 0.3 mg/0.3 mL 0.3 mg IM .COMPLEX PRN 06/24/19 03/23/20 Unknown injection, auto-injector ibuprofen 200 mg tablet 200 - 600 mg PO Q6H PRN 06/24/19 03/23/20 02/21/20 pseudoephedrine HCl 120 mg 120 mg PO Q12H PRN 08/27/19 03/23/20 Unknown tablet,extended release Vitamin D3 4,000 unit PO DAILY 09/15/19 03/23/20 02/24/20 22:00 Medical Marijuana Card 1 dose UD PRN 02/03/20 03/23/20 02/24/20 22:00 dextroamphetamine-amphetamine 20 mg PO QAM 0703/23/20 02/24/20 [Adderall XR] dextroamphetamine-amphetamine 15 mg PO UD PRN 02/03/20 03/23/20 02/22/20 [Adderall] levothyroxine [Synthroid] 137 mcg PO QAM 02/03/20 03/23/20 02/25/20 05:30 sulfasalazine 500 mg PO BID 02/03/20 03/23/20 02/24/20 22:00 vitamin B complex 1 tab PO DAILY 02/25/20 03/23/20 02/24/20 sulindac 150 mg PO BID 03/23/20 03/23/20 Unknown Past Medical History Medical History ADHD Anxiety and depression Autoimmune disease arthritis (no definitive diagnosis) under surveillance by rheumatology (Pawan)- on sulfasalazine Degenerative disc disease Rosendo's disease History of renal stone Lumbar disc herniation Non-alcoholic fatty liver disease Obesity PCOS (polycystic ovarian syndrome) TMJ (temporomandibular joint disorder) locks approximately once/year Exercise / Class Metabolic Activity II 4-5 Yardwork/Stairs/Walk up hill Past Family History Family History Mother Melanoma Rosendo's disease Hypertension Family history of diabetes mellitus Father Myocardial infarction Sister Rosendo's disease Grandmother (Maternal) Hypothyroidism Grandfather (Paternal) Heart disease Past Surgical History Surgical History History of History of laparoscopy History of surgery HX LUMBAR EPIDURAL STEROID INJECTIONS History of surgery Robotic lap excision urachal remnant: 02/25/20: Grade view 1, MAC#3, ETT 7.5 at [facility] [place] teeth removed Past Anesthesia History No Hx of Anesthesia Complications (except PONV x1 (c/s)) and No Family Hx of Anesthesia Complications History of PONV No Hx of Motion Sickness and History of PONV (x1 episode) Social History Smoking Status: Former smoker tobacco type: cigarettes Do You Dip or Chew Tobacco: No Smoking End Date: Quit 2008 Hx Alcohol Use: Yes Alcohol type: beer and hard liquor alcohol intake frequency: holidays/special occasions only Hx Substance Use: No substance use type: marijuana (medical marijuana HS (tincture)) Review of Systems Patient denies chest pain, shortness of breath, dyspnea on exertion, joint pain, reflux, cough, wheezing, palpitations. Physical Exam Vital Signs VITALS BP 123/78 P 88 TEMP 98.2 SP02 97%RA RESP 16 PHYSICAL Full neck and c-spine range of motion. Full TMJ range of motion. TMD 3.5 finger breaths Mallampati Score 1 (large tonsils) Dentition: intact Lungs: clear throughout to auscultation Cardiac: regular rate and rhythm, no murmurs noted Spine: normal Carotid arteries: negative bruit Extremities: no edema Testing Laboratory Results 03/27/20 11:50 03/27/20 11:50 PT 10.6 Seconds (9.0-12.0) 03/27/20 11:50 INR 1.0 (0.9-1.1) 03/27/20 11:50 APTT 30.5 Seconds (21.0-31.0) 03/27/20 11:50 Urine Color Dark Yellow 03/27/20 11:50 Urine Appearance Clear (Clear) 03/27/20 11:50 Urine pH 5.0 (4.5-7.5) 03/27/20 11:50 Ur Specific [place] 1.025 (1.000-1.030) 03/27/20 11:50 Urine Protein Negative (Negative) 03/27/20 11:50 Urine Glucose (UA) Negative (Negative) 03/27/20 11:50 Urine Ketones Negative (Negative) 03/27/20 11:50 Urine Nitrite Negative (Negative) 03/27/20 11:50 Ur Leukocyte Esterase Negative (Negative) 03/27/20 11:50 Blood Type O Positive 03/27/20 11:50 Antibody Screen NEGATIVE 03/27/20 11:50 Electrocardiogram Date: 03/27/20 Findings: + NSR @ (83) Chest X-Ray Date: 03/27/20 FINDINGS: Cardiomediastinal and hilar silhouettes are within normal limits. No pneumothorax, pleural effusion, airspace consolidation or overt pulmonary edema. Bones of the chest appear grossly intact. IMPRESSION: No acute process.
--- NOTE | 2020-03-27 12:19 | XRay Report ---
XR chest Pre-admission PA/Lat HISTORY: 34 years-old Female pat preoperative exam. COMPARISON: CT abdomen and pelvis 09/15/2019, CTA chest 12/13/2017 TECHNIQUE: PA and lateral views of the chest FINDINGS: Cardiomediastinal and hilar silhouettes are within normal limits. No pneumothorax, pleural effusion, airspace consolidation or overt pulmonary edema. Bones of the chest appear grossly intact. IMPRESSION: No acute process. ACT 112: Negative or not required by law. The above report was generated using voice recognition software. It may contain grammatical, syntax o r spelling errors. Electronically signed by: Mikal Mendoza M.D. 03/27/2020 12:17 PM
[2020-03-27 12:32] LABS: Basophils # (auto) 0.01 K/uL (0-0.2); Basophils % (auto) 0.1 %; Eosinophils # (auto) 0.21 K/uL (0-0.5); Eosinophils % (auto) 2.4 %; Hematocrit (blood only) 40.7 % (37-47); Hemoglobin 13.7 g/dL (12.0-16.0); Immature Granulocytes # (auto) 0.03 K/uL (0.00-0.02); Immature Granulocytes % (auto) 0.3 %; Mean Corpuscular Hemoglobin 29.2 pg (25-34); Mean Corpuscular Hgb Conc 33.7 g/dL (32-36); Mean Corpuscular Volume 86.8 fL (80-100); Monocytes # (auto) 0.53 K/uL (0.11-0.59); Monocytes % (auto) 6.1 %; Neutrophils # (auto) 5.86 K/uL (1.4-6.5); Neutrophils % (auto) 67.1 %; Platelet Count 356 K/uL (130-400); RDW Coefficient of Variation 13.2 % (11.5-14.5); RDW Standard Deviation 41.9 fL (36.4-46.3); Red Blood Count 4.69 M/uL (4.2-5.4); White Blood Count 8.74 K/uL (4.8-10.8)
[2020-03-27 12:39] LABS: Appearance Urine Clear (Clear); Bilirubin Urine Negative (Negative); Blood Urine Negative (Negative); Color Urine Dark Yellow; Glucose Urine UA Negative (Negative); Ketones Urine Negative (Negative); Leukocyte Esterase Urine Negative (Negative); Nitrite Urine Negative (Negative); Protein Urine Negative (Negative); Specific Gravity Urine 1.025 (1.000-1.030); Urobilinogen Urine Negative (Negative)
[2020-03-27 12:47] LABS: BUN Creatinine Ratio 14.6 (10-20); Calcium 8.9 mg/dl (8.5-10.1); Creatinine Clr Calc Pharmacy 160.9 ml/min; Est GFR (African American) 132.9; Est GFR (Non-African American) 114.7; Potassium 3.8 mmol/L (3.5-5.1)
[2020-03-27 12:49] LABS: Partial Thromboplastin Ratio 1.1; Partial Thromboplastin Time 30.5 Seconds (21.0-31.0); Prothrombin Time 10.6 Seconds (9.0-12.0)
--- NOTE | 2020-03-27 14:11 | Electrocardiogram Report ---
Test Reason : Blood Pressure : / mmHG Vent. Rate : 083 BPM Atrial Rate : 083 BPM P-R Int : 158 ms QRS Dur : 084 ms QT Int : 388 ms P-R-T Axes : 067 020 043 degrees QTc Int : 455 ms Normal sinus rhythm Normal ECG When compared with ECG of 13-DEC-2017 16:02, No significant change was found Confirmed by Ashish Tinsley ([id number]) on 03/27/2020 2:11:25 PM Referred By: Richy Ortiz Confirmed By:Ashish Tinsley
[~2020-04-10 08:05] MED LIST changes: +CEFAZOLIN 2000MG 2,000 MG/15 ML SYR IV SCH; -DOCO1CAP6 PO; +GABAPENTIN 900 MG DOSE PO SCH; -GLC/500 PO; -LEVO88TA3 PO; +LR 15ML/HR IV SCH; -PRENTAB26 PO
[2020-04-10] MEDS ORDERED: DEXAMETHASONE SOD INJ 4 MG/ML VIAL ONE (08:27)
[2020-04-10] MEDS ORDERED: ONDANSETRON INJ 2 MG/ML 2 ML VIAL ONE (08:27)
[2020-04-10] MEDS ORDERED: LIDOCAINE HCL 2% 2 ML VIAL/AMP(20MG/ML) INFIL ONE (08:27)
[2020-04-10] MEDS ORDERED: GLYCOPYRROLATE 0.2 MG/ML VIAL ONE (08:27)
[2020-04-10] MEDS ORDERED: fentaNYL citrate 100 MCG/2 ML VIAL ONE ×2 (08:28→11:24)
[2020-04-10] MEDS ORDERED: NEOSTIGMINE METHYLSULFATE 1 MG/ML 10ML VIAL ONE (08:28)
[2020-04-10] MEDS ORDERED: MIDAZOLAM HCL 1 MG/ML 2ML VIAL ONE (08:28)
[2020-04-10] MEDS ORDERED: PROPOFOL IV EMULSION 10 MG/ML 20 ML VIAL IV ONE (08:28)
--- NOTE | 2020-04-10 09:20 | History & Physical Bridge Note ---
Date of Service April 10, 2020 History & Physical Bridge Note I have examined the patient, reviewed the History & Physical and in the interval since the performance of the History & Physical I have noted the following changes of clinical significance: no changes noted
--- NOTE | 2020-04-10 09:21 | History & Physical Report ---
Date of Service April 10, 2020 Assessment & Plan (1) Lumbar disc herniation with radiculopathy: Admission and Anticipated Discharge Date Admission Date: L4-L5 microdiscectomy, possible Coflex implantation History of Present Illness Chief Complaint: Back and leg pain Primary Care Provider: Karen Neville DO This is a 34-year-old female that presents with worsening back and leg pain after failing course of nonoperative care is here for surgical invention. Allergies Allergy/AdvReac Type Severity Reaction Status Date / Time banana Allergy Intermediate Mouth Verified 04/10/20 08:29 itching nickel Allergy Mild Contact Verified 04/10/20 08:29 dermatitis adhesive AdvReac Severe Blister Verified 04/10/20 08:30 BLUE CHEESE Allergy Intermediate Mouth Uncoded 04/10/20 08:29 itching Cantaloupe Allergy Intermediate Mouth Uncoded 04/10/20 08:29 itching Home Medications Home Medications Medication Instructions Recorded Confirmed Type escitalopram oxalate [Lexapro] 30 mg PO HS 10/30/18 04/10/20 History epinephrine 0.3 mg/0.3 mL 0.3 mg IM .COMPLEX PRN 06/24/19 04/10/20 History injection, auto-injector ibuprofen 200 mg tablet 200 - 600 mg PO Q6H PRN 06/24/19 04/10/20 History pseudoephedrine HCl 120 mg 120 mg PO Q12H PRN 08/27/19 04/10/20 History tablet,extended release Vitamin D3 4,000 unit PO DAILY 09/15/19 04/10/20 History Medical Marijuana Card 1 dose UD PRN 02/03/20 04/10/20 History dextroamphetamine-amphetamine 20 mg PO QAM 02/03/20 04/10/20 History [Adderall XR] dextroamphetamine-amphetamine 15 mg PO UD PRN 02/03/20 04/10/20 History [Adderall] levothyroxine [Synthroid] 137 mcg PO QAM 02/03/20 04/10/20 History sulfasalazine [Azulfidine] 500 mg PO BID 02/03/20 04/10/20 History vitamin B complex 1 tab PO DAILY 02/25/20 04/10/20 History sulindac 150 mg PO BID 03/23/20 04/10/20 History Past Med/Surg History Medical History ADHD Anxiety and depression Autoimmune disease arthritis (no definitive diagnosis) under surveillance by rheumatology (Pawan)- on sulfasalazine Degenerative disc disease Rosendo's disease History of renal stone Lumbar disc herniation Non-alcoholic fatty liver disease Obesity PCOS (polycystic ovarian syndrome) TMJ (temporomandibular joint disorder) locks approximately once/year Surgical History History of History of laparoscopy History of surgery HX LUMBAR EPIDURAL STEROID INJECTIONS History of surgery Robotic lap excision urachal remnant: 02/25/20: Grade view 1, MAC#3, ETT 7.5 at [facility] [place] teeth removed Family History Mother Melanoma Rosendo's disease Hypertension Family history of diabetes mellitus Father Myocardial infarction Sister Rosendo's disease Grandmother (Maternal) Hypothyroidism Grandfather (Paternal) Heart disease Social History Smoking Status: Former smoker Tobacco Type: Cigarettes Smoking End Date: Quit 2008; Second Hand Exposure: No; Do You Dip or Chew Tobacco: No; Tobacco Cessation Education Requested by Patient: No Hx Alcohol Use: No Hx Substance Use: No Preferred Language: Latvian Communication Ability: Effective Fourdrinier Machine Tender Required: No Beliefs That Will Affect Care: None marital status: Current Living Situation: Spouse current occupational status: employed Feels Safe at Home: Yes Safety Concerns: Feels Safe At This Time Assistive Devices: Glasses Physical Exam Physical Exam: Patient is alert and oriented neurologically intact. Heart regular in rhythm. Lungs clear to auscultation. Results & Data ([facility]) Vital Signs (Past 12 Hours) Vital Signs Temp Pulse Resp BP Pulse Ox 04/10/20 08:46 36.8 C 91 H 18 141/80 H 96
[2020-04-10] MEDS ORDERED: BUPIVACAINE/EPINEPHRINE 0.25% 1:200,000 30 ML VIAL ONE (09:38)
[2020-04-10] MEDS ORDERED: BACITRACIN INJ 50,000 UNIT VIAL ONE (09:38)
[2020-04-10] MEDS ORDERED: FLOSEAL HEMOSTATIC MATRIX 10ML TOP ONE (10:29)
[2020-04-10] MEDS ORDERED: ATROPINE SULFATE 0.1 MG/ML 10ML SYR IV PRN (10:53)
[2020-04-10] MEDS ORDERED: ePHEDrine sulfate 50 MG/ML AMP IV PRN (10:53)
[2020-04-10] MEDS ORDERED: PROMETHAZINE HCL 12.5 MG in SODIUM CHLORIDE 0.9% 50 ML IV PRN ×2 (10:53→12:47)
[2020-04-10] MEDS ORDERED: HYDROmorphone INJ 2 MG/ML SYR/VIAL IV PRN (10:53)
[2020-04-10] MEDS ORDERED: ONDANSETRON INJ 2 MG/ML 2 ML VIAL IV PRN ×2 (10:53→12:47)
[2020-04-10] MEDS ORDERED: METOCLOPRAMIDE HCL INJ 5 MG/ML 2 ML VIAL IV PRN ×2 (10:53→12:47)
--- NOTE | 2020-04-10 11:09 | Operative Report ---
Post Operative Report Pre & Post Diagnosis Operation Date: 04/10/20 09:05 Pre-Op Diagnosis: Disc Disorders with Radiculopathy, Lumbar Region Post-Op Diagnosis: Disc Disorders with Radiculopathy, Lumbar Region I identified the patient and participated in the time-out.: Yes Procedure Operation Date: 04/10/20 09:05 Actual Procedures #1 lumbar decompression with bilateral medial facetectomies L4-L5. #2 placement of 14 mm Coflex at L4-L5. Surgeon Richy Ortiz, DO Temporary Administrative Assistant Benjamín Mao Estimated Blood Loss 10 Findings See Below The patient is 5 foot 9 inches tall weighing over 113 kg with a BMI in excess of 36. Patient's body habitus did add increased technical difficulty requiring her deepest retractors and longus instruments in order to perform her procedure. This at least 25% increase to the operative time. Specimens None Indications This is a 34-year-old female who presents with above-mentioned diagnosis after failing course of nonoperative care is here for surgical invention. Description of Procedure Patient was met with identified informed consent obtained. Patient was then taken to the operative suite underwent an patient placed in a prone position on the Addison table on top of Roderick frame. All bony prominences well-padded eyes inspected to ensure no external pressure placed upon them. This point the lumbar spine was prepped and draped in normal sterile fashion. With the assistance of fluoroscopy identified the L4-L5 disc base and midline incision was created overlying his region. Sharp dissection with assistance of Bovie cautery was performed down to and exposing the lamina and interlaminar space at L4-L5. Self-retaining retractors placed. Then performed a midline decompression including bilateral medial facetectomies and resection of the ligamentum flavum for complete decompression. I was able to mobilize the right nerve root without difficulty. I explored for any loose fragments and none were identified. The root had excellent mobilization and no evidence of further compression. After this complete a 14 mm Coflex was placed in the interlaminar space between L4 and L5 and crimped into final position. The incision was then copiously irrigated and a 10 round JON drain inserted. Was then closed with 1 Vicryl the fascia 2-0 Vicryl subcutaneously and 4 Monocryl for final skin closure. Steri-Strip sterile dressings placed. Patient waken taken PACU stable condition. Please note spinal cord monitoring was utilized at the procedure no changes noted. Lastly Benjamín palacios was present throughout the entire surgery involved in patient positioning complex portions of the surgery and final skin closure. I attest to the content of the Intraoperative Record and any orders documented therein. Any exceptions are noted below.
--- NOTE | 2020-04-10 11:17 | Fluoroscopy Report ---
FL spine 1V any level CLINICAL HISTORY: L4-L5 MICRODISCECTOMYand Coflex placement COMPARISON STUDY: None. FLUOROSCOPY TIME: 4 seconds. FINDINGS: Single fluoroscopic spot images of the lumbar spine demonstrates L4-5 Coflex placement. Thi s appears in good position. IMPRESSION: Fluoroscopy provided for L4-L5 Coflex placement. ACT 112: Negative or not required by law. Electronically signed by: Celso Vargas M.D. 04/10/2020 11:15 AM
[2020-04-10] MEDS: fentaNYL citrate 100 MCG/2 ML VIAL IV PRN ×4 (11:50→12:05)
--- NOTE | 2020-04-10 12:42 | Anesthesiology Progress Note ---
Date of Service April 10, 2020 Anesthesia Post Procedure Vital Signs Vital Signs: Temp Pulse Pulse Resp BP Pulse Ox 04/10/20 12:09 93 H 14 123/70 93 04/10/20 12:00 93 H 19 147/98 H 97 04/10/20 11:50 86 19 128/94 95 04/10/20 11:40 82 14 147/88 H 100 04/10/20 11:31 36.6 C 100 H 16 119/77 98 04/10/20 08:46 36.8 C 91 H 18 141/80 H 96 Transfer of Care Handoff Completed per policy Notes Mental Status: alert / awake / arousable and participated in evaluation Patient Amnestic to Procedure: Yes Nausea / Vomiting: adequately controlled Pain: adequately controlled Airway Patency, RR, SpO2: stable & adequate BP & HR: stable & adequate Hydration State: stable & adequate Anesthetic Complications: no major complications apparent
[2020-04-10] MEDS ORDERED: NALOXONE HCL 0.4 MG/1 ML VIAL/CARP IV PRN (12:47)
[2020-04-10] MEDS ORDERED: HYDROmorphone INJ 1 MG/ML SYRINGE IV PRN (12:47)
[2020-04-10] MEDS ORDERED: FAMOTIDINE 20 MG TAB PO PRN (12:47)
[2020-04-10] MEDS ORDERED: LORazepam 0.5 MG TAB PO PRN (12:47)
[2020-04-10] MEDS ORDERED: SOD PHOSPHATE/SOD BIPHOSPHATE ENEMA 132 ML BTL PR PRN (12:47)
[2020-04-10] MEDS ORDERED: DO NOT ADMINISTER PNEUMOCOCCAL VACCINE PRN (12:47)
[2020-04-10] MEDS ORDERED: ACETAMINOPHEN 1,000 MG/100 ML VIAL IV PRN (12:47)
[2020-04-10] MEDS ORDERED: KETOROLAC 30 MG/ML VIAL IV PRN (12:47)
[2020-04-10] MEDS ORDERED: DEXTROAMPHETAMINE AMPHETAMINE 15 MG PO PRN (12:47)
[2020-04-10] MEDS ORDERED: ACETAMINOPHEN 500 MG TAB PO PRN (12:47)
[2020-04-10] MEDS ORDERED: bisacodyL 10 MG SUPP PR PRN (12:47)
[2020-04-10] MEDS ORDERED: ONDANSETRON 4 MG OD TAB PO PRN (12:47)
[2020-04-10] MEDS ORDERED: DO NOT ADMINISTER FLU VACCINE PRN (12:47)
[2020-04-10] MEDS ORDERED: EPINEPHrine INJ 1 MG/ML AMP IM PRN (12:47)
[2020-04-10] MEDS ORDERED: TRAMADOL HCL 50 MG TABLET PO PRN (12:47)
[2020-04-10] MEDS ORDERED: MAGNESIUM HYDROXIDE SUSP 30 ML UDC PO PRN (12:47)
[2020-04-10] MEDS ORDERED: LORazepam 0.5 MG/1 ML VIAL IV PRN (12:47)
[2020-04-10] MEDS ORDERED: ALUMINUM/MAGNESIUM SUSP 30 ML UDC PO PRN (12:47)
[2020-04-10] MEDS ORDERED: HYDROmorphone INJ 0.5 MG/0.5 ML SYR IV PRN (12:47)
[2020-04-10] MEDS ORDERED: ROCURONIUM BROMIDE 10 MG/ML 5 ML VIAL IV ONE (13:21)
[2020-04-10] MEDS: OXYCODONE HCL IR 5 MG TAB (IMMEDIATE RELEASE) PO PRN ×2 (14:27→18:48)
[2020-04-10] MEDS: LACTATED RINGER'S 1,000 ML IV SCH ×2 (14:27→21:58)
[2020-04-10] MEDS: CEFAZOLIN 2000MG 2,000 MG/15 ML SYR IV SCH (18:39)
[2020-04-10] MEDS ORDERED: DOCUSATE SODIUM/SENNA 50/8.6MG TAB PO SCH (21:00)
[2020-04-10] MEDS ORDERED: ESCITALOPRAM OXALATE 10 MG TAB PO SCH (21:00)
[2020-04-10] MEDS: sulfaSALAzine 500 MG TABLET PO SCH (21:16)
[2020-04-11] MEDS: CEFAZOLIN 2000MG 2,000 MG/15 ML SYR IV SCH (02:11)
[2020-04-11] MEDS: POLYETHYLENE (MIRALAX) 17 GM PACK PO SCH ×2 (06:23→12:20)
[2020-04-11] MEDS: OXYCODONE HCL IR 5 MG TAB (IMMEDIATE RELEASE) PO PRN ×2 (06:27→12:20)
[2020-04-11] MEDS ORDERED: LEVOTHYROXINE SODIUM 137 MCG TABLET PO SCH (06:30)
[2020-04-11] MEDS: sulfaSALAzine 500 MG TABLET PO SCH (08:34)
[2020-04-11] MEDS ORDERED: VITAMIN B COMPLEX TAB PO SCH (09:00)
[2020-04-11] MEDS ORDERED: CHOLECALCIFEROL 1,000 UNITS 25 MCG TAB PO SCH (09:00)
[2020-04-11] MEDS ORDERED: AMPHETAMINE ASP/SULF/DEXTRAMPH ER 20 MG CAP PO SCH (09:00)
--- NOTE | 2020-04-11 11:14 | Discharge Summary ---
Date of Service April 11, 2020 Admission HPI Per Admitting Provider This is a 34-year-old female that presents with worsening back and leg pain after failing course of nonoperative care is here for surgical invention. Principal Diagnosis Lumbar stenosis with radiculopathy Discharge Data Allergies Allergy/AdvReac Type Severity Reaction Status Date / Time banana Allergy Intermediate Mouth Verified 04/10/20 08:29 itching nickel Allergy Mild Contact Verified 04/10/20 08:29 dermatitis adhesive AdvReac Severe Blister Verified 04/10/20 08:30 BLUE CHEESE Allergy Intermediate Mouth Uncoded 04/10/20 08:29 itching Cantaloupe Allergy Intermediate Mouth Uncoded 04/10/20 08:29 itching Procedures Performed Operation Date: 04/10/20 09:05 Actual Procedures p L4-L5 Microdiscectomy, Coflex Implantation(Not Applicable) - Richy Ortiz DO Ordered Studies 04/10/20 09:05 FL fluoroscopy <1hr Routine FL spine 1V any level Routine Hospital Course (1) Lumbar disc herniation with radiculopathy: Patient underwent lumbar decompression with Coflex implantation chart as well as taken to the orthopedic floor postoperative. Postop day 1 she was up and ambulating leg symptoms improved. Back pain well controlled. JON drain decreasing appropriately. Excellent strength testing. Subsequently discharged home. Discharge orders and instructions from the chart for further review. Total Time Total Time Spent Total Time Spent (In Minutes): 20 minutes Discharge Plan Discharge Items Patient Disposition: Home - Self-Care Reason For Visit: Disc Disorders with Radiculopathy, Lumbar Region Discharge Diagnosis: Lumbar spinal stenosis with radiculopathy Activity: As commented below Non-emergency contact: Primary Care Provider Call non-emergency contact if: you have any medication questions Follow-up/Referrals: Karen Neville DO [Primary Care Provider] - Diet: Regular Addtl Attending Provider Instructions: ACTIVITY RECOMMENDATIONS: SELF CARE INSTRUCTIONS AFTER A LAMINECTOMY 1. No prolonged sitting (less than 30 minutes for the first 3 weeks after surgery). 2. No bending, lifting more than 5 pounds, or twisting (roll like a log when turning in bed). 3. You may shower 3 days after surgery if no drainage from wound. Thoroughly dry wound. Do not soak in the tub. 4. Please walk as much as you can for exercise. Gradually increase the distance that you walk as your endurance increases. 5. You may drive in 7-10 days if you are comfortable and no longer requiring pain medications. SPECIAL CARE INSTRUCTIONS: VERY IMPORTANT TO READ AND REVIEW A. Your surgical incision has been closed with a cosmetic suture under the skin that will dissolve in about 6 weeks. In 14 days, you can use a pair of clean scissors and cut the suture that is left outside of the skin at the ends of your incision. B. Complications are uncommon, but please contact us if you have any signs or symptoms of: 1. wound infection (fever higher than 102.5 degrees F, redness, separation of wound, drainage, or increasing pain from the incision) 2. blood clots in legs (pain, swelling, redness and warmth in legs) 3. urinary tract infection (fever higher than 102.5 degrees, burning upon urination or increased frequency of urination) 4. nerve problems (inability to walk on your toes or heels, numbness, loss of bowel or bladder control) 5. any other symptoms that concern you. C. Please call the office at if you have any concerns or questions about your operation or recovery. MANAGING PAIN AFTER SPINAL SURGERY 1. Narcotic medication is intended for short-term use and will be provided for surgical pain. Surgical pain usually lasts for a period of 4-6 weeks. Narcotic medication includes Percocet, Vicodin, Darvocet, Tylenol #3 or Lortab. 2. Longer-term pain is more appropriately treated with non-narcotic medication such as Tylenol ES. 3. Muscle spasm is not appropriately treated with narcotics. Muscle relaxers such as Soma, Flexeril or Skelaxin can be used along with Tylenol ES. 4. Remember that we all live with some "aches and pains". This is not unusual or uncommon after an injury or as we get older. 5. We will provide appropriate medication within the normal guidelines of their prescribed use. We will also be very cautious and aware of potential abuse and extended duration of patients' medication needs. 6. Please allow 2-3 days to process refills. Prescriptions will not be mailed but must be picked up at the office. FOLLOW UP VISIT: Keep your scheduled follow-up appointment. Any questions, please call the office at . Pending Studies at Discharge: No Stand-Alone Forms: My [facility], Smoking Cessation Medications and DC Order Prescriptions: New tramadol 50 mg tablet 50 mg PO Q6H PRN (Reason: pain, moderate) Qty: 20 RF: 0 oxycodone 5 mg tablet 5 mg PO Q6H PRN (Reason: pain, severe) Qty: 20 RF: 0 Continued pseudoephedrine HCl [Sudafed 12 Hour] 120 mg tablet extended release 120 mg PO Q12H PRN (Reason: Sinus Pressure) RF: 0 epinephrine [EpiPen] 0.3 mg/0.3 mL auto-injector 0.3 mg IM .COMPLEX PRN (Reason: Allergic Reaction) RF: 0 sulindac 150 mg Tablet 150 mg PO BID RF: 0 escitalopram oxalate [Lexapro] 20 mg Tablet 30 mg PO HS RF: 0 ibuprofen 200 mg tablet 200 - 600 mg PO Q6H PRN (Reason: Pain) RF: 0 Vitamin D3 4,000 unit Capsule 4,000 unit PO DAILY RF: 0 dextroamphetamine-amphetamine [Adderall XR] 20 mg Capsule,Extended Release 24hr 20 mg PO QAM RF: 0 dextroamphetamine-amphetamine [Adderall] 15 mg Tablet 15 mg PO UD PRN (Reason: NEEDED) RF: 0 levothyroxine [Synthroid] 137 mcg tablet 137 mcg PO QAM RF: 0 sulfasalazine [Azulfidine] 500 mg Tablet 500 mg PO BID RF: 0 Medical Marijuana Card 1 dose UD PRN (Reason: DEGENERATIVE DISC DISEASE) RF: 0 vitamin B complex Tablet 1 tab PO DAILY RF: 0 Discharge Orders: Discharge Order (Routine); Ordered 04/11/20 Ordered By: Richy Ortiz Admission Data Admit Date/Time: 04/10/20 11:54 Attending Provider: Richy Ortiz Admit Provider: Richy Ortiz Primary Care Provider: Karen Neville
== END 2020-04-11 14:32 | disposition home or self-care (01) ==
LOC: 3E 08:05 → ASU 08:05